=== PATIENT | male | born 1995 | race Hispanic/Latino ===

== ENCOUNTER 2017-04-19 17:51 | Emergency (ER) | payer OTHER ==
[2017-04-19 18:00] VITALS: BP 170/81; PULSE 96; RESP 18; TEMP 98.3; O2SAT 98
[2017-04-19] MEDS ORDERED: Oxycodone/Acetaminophen 5/325 mg Tab PO STA (18:14)
--- NOTE | 2017-04-19 20:34 | ED PDOC ---
HPI: General Adult Time Seen by Provider: 04/19/17 18:00 Chief Complaint (Nursing): Upper Extremity Problem/Injury History Per: Patient Additional Complaint(s): Pt. states earlier today he sustained a L wrist injury due to falling from his snowboard. Pt. states he was seen in [facility] and was dx with a wrist fx and splinted. States while he was in ED he was given a pain medication but after being dc'd and on the way back to [place] he began to feel numbness in his L index and L thumb. Shortly after he began to feel very anxious, dizzy, and developed numbness to all his fingertips prompting ED visit. Denies new trauma. Past Medical History Reviewed: Historical Data, Nursing Documentation, Vital Signs Vital Signs: Last Vital Signs Temp 98.3 F 04/19/17 17:57 Pulse 96 H 04/19/17 17:57 Resp 18 04/19/17 17:57 BP 170/81 H 04/19/17 17:57 Pulse Ox 98 04/19/17 20:41 - Family History Family History: States: No Known Family Hx - Home Medications Home Medications: Ambulatory Orders Medication Instructions Recorded Alprazolam [Xanax] 0.5 mg PO Q8 PRN #10 tab 04/19/17 - Allergies Allergies/Adverse Reactions: Allergies Allergy/AdvReac Type Severity Reaction Status Date / Time No Known Allergies Allergy Verified 04/19/17 17:57 Review of Systems ROS Statement: Except As Marked, All Systems Reviewed And Found Negative Physical Exam - Physical Exam Appears: Positive for: Well, Non-toxic, No Acute Distress Skin: Positive for: Normal Color, Warm. Negative for: Rash Eye Exam: Positive for: EOMI, Normal appearance, PERRL Cardiovascular/Chest: Positive for: Regular Rate, Rhythm Respiratory: Positive for: Normal Breath Sounds Extremity: Positive for: Capillary Refill (< 2 seconds on fingertips of L hand) , Other (L forearm in sugar tong splint) Neurologic/Psych: Positive for: Alert, Oriented. Negative for: Aphasia, Facial Droop - ECG O2 Sat by Pulse Oximetry: 98 - Progress ED Course And Treament: Perocet 2 tabs PO ordered. X-ray copies on CD which show mildly displaced distal radius fx without dislocation L arm splint removed. Shortly after pt. began c/o anxiety. Pt. appears very anxious. States he is anxious about the procedure he may have to get. Ativan 1mg PO ordered. On re-evaluation pt. reports feeling better. Appears more calm. Numbness and pain have also improved to L thumb and L index fingers but still present. Moderate tenderness to dorsum of wrist without deformity. No circumferential swelling. Radial nerve, median nerve, ulnar nerve function in tact. Pt. states he has an orthopedist he's going to f/u with in [place] as he is not from here originally. Case d/w Dr. Hay who agrees with care and states pt. can f/u with his orthopedist. Orthoglass sugar tong splint placed by PA. Sling applied. Pt. requesting Rx for anti-anxiety meds [place] [employer] Aware records indicate pt. has no previous narcotic prescriptions. Disposition - Clinical Impression Clinical Impression: Anxiety, Distal radius fracture - Patient ED Disposition Is Patient to be Admitted: No - Disposition Referrals: Grover Huang III, MD [Staff Provider] - Disposition: Routine/Home Disposition Time: 19:11 Condition: STABLE Prescriptions: Alprazolam [Xanax] 0.5 mg PO Q8 PRN #10 tab PRN Reason: Anxiety Instructions: Wrist Fracture in Adults (ED), Anxiety (ED) Forms: [employer] (Taiwanese), [facility] School/Work Excuse Print Language: FRISIAN
== END 2017-04-19 19:16 | disposition home or self-care (01) ==
LOC: H.ER 17:51
DX: S52.502A Unspecified fracture of the lower end of left radius, initial encounter for closed fracture (principal); Y93.23 Activity, snow (alpine) (downhill) skiing, snowboarding, sledding, tobogganing and snow tubing; F41.9 Anxiety disorder, unspecified